=== PATIENT | female | born 1985 | race Caucasian/White ===

== ENCOUNTER → 2017-05-12 | Outpatient (REF) | payer OTHER ==
[~2017-05-12] MED LIST: ACET50TA PO; IBUP80TA PO; SUBO8MIS PO; SUBO8TA SL
== END ==
LOC: M LAB REF 14:14
PROVIDERS: ATTEND Physician Assistant Medical
DX: N76.0 Acute vaginitis (principal)

== ENCOUNTER → 2018-11-19 | Outpatient (REF) | payer OTHER ==
[~2018-11-19] MED LIST changes: -ACET50TA PO; +MAPA500T17 PO
[2018-11-22 14:19] LABS: HPV LOW VOL RFLX Negative (Negative)
== END ==
LOC: M LAB REF 17:29
PROVIDERS: ATTEND Specialist
DX: Z12.4 Encounter for screening for malignant neoplasm of cervix (principal)

== ENCOUNTER 2019-05-06 14:57 | Emergency (ER) | payer OTHER, SELFPAY ==
[2019-05-06 16:13] VITALS: BP 118/72
== END 2019-05-06 16:10 | disposition home or self-care (01) ==
LOC: EDBD 14:57 → M ED 14:57
DX: F11.20 Opioid dependence, uncomplicated (principal)

== ENCOUNTER → 2023-07-04 | Outpatient (CLI) | payer BC, SELFPAY | LOC: M WHC 10:44 | PROVIDERS: ATTEND Nurse Practitioner Family | DX: Z12.31 Encounter for screening mammogram for malignant neoplasm of breast (principal) ==